=== PATIENT | female | born 1950 | race Caucasian/White ===

== ENCOUNTER 2018-03-26 16:25 | Observation (INO) | payer MEDICARE, OTHER ==
[~2018-03-26] VITALS: Ht 160 cm; Wt 47.0 kg
[~2018-03-26 16:25] MED LIST: ALLO300; ALLO300 PO; ASPI81CH PO; ASPI81EC PO; ATOR20 PO; Alora1 EAC1 TD; CALCIUM 600 MG; CHOL10002 PO; CITALOPRAM PO; CLOP75 PO; DOCU100 PO; ESOM20 PO; ESTEST.62T PO; ESTR2 PO; FENT100TP TOP; FENT75TP; FENT75TP TOP; FISH OIL 1,2001 EACH PO; FISH1000 PO; GINGER PO; HYDACE10B PO; HYDCHL12.5 PO; HYDR10 PO; Hair, Skin & N1 EACH PO; LAVAP17G PO; LISI20; LISI20 PO; METO25ER; METO25ER PO; METO50 PO; METO50ER PO; MSM1500 MG PO; MULVITA PO; NITR.1TP; NITR.3TP TOP; NITR.4SL SL; NITR100; ONDA4ODT MM; OXYACE5T PO; OXYC5 PO; PANT40 PO; PROC10 PO; PROC5; PROC5 PO; Prinivil10 MG PO; RANEXA; RANO500T PO; TOCO400 PO; VITAMIN D PO; Vitamin E PO; [UNRECOGNIZED DRUG - CODE] PO
[2018-03-26 17:43] LABS: BASOPHILS ABSOLUTE AUTO 0.02 K/mm3 (0.00-0.23); BASOPHILS PERCENT AUTO 0 % (0-2); EOSINOPHILS ABSOLUTE AUTO 0.05 K/mm3 (0.00-0.68); EOSINOPHILS PERCENT AUTO 1 % (0-6); Hematocrit 39.2 % (33.0-51.0); Hemoglobin 13.1 g/dL (11.5-16.0); IMMATURE GRAN ABSOLUTE AUTO 0.01 K/mm3 (0.00-0.10); IMMATURE GRAN PERCENT AUTO 0 % (0-1); LYMPHOCYTES PERCENT AUTO 32 % (21-46); MONOCYTES ABSOLUTE AUTO 0.47 K/mm3 (0.16-1.47); MONOCYTES PERCENT AUTO 9 % (4-13); Mean Corpuscular HGB 30.5 pg (26.0-34.0); Mean Corpuscular HGB Conc 33.4 g/dL (31.5-36.5); Mean Corpuscular Volume 91 fL (80-100); Mean Platelet Volume 10.3 fL (9.1-12.4); NEUTROPHILS ABSOLUTE AUTO 3.04 K/mm3 (1.96-9.15); NEUTROPHILS PERCENT AUTO 58 % (41-73); Platelet Count 189 K/mm3 (150-400); RDW Coefficient Variation 13.2 % (11.7-14.2); RDW Standard Deviation 43.8 fL (35.1-46.3); White Blood Cell Count 5.29 K/mm3 (4.00-11.30)
[2018-03-26 18:09] LABS: Alanine Aminotransfer (ALT/SGP 13 U/L (12-78); Albumin, Blood 3.9 g/dL (3.4-5.0); Albumin/Globulin Ratio 1.1 (0.8-1.8); Alk Phos 59 U/L (50-136); Anion Gap 7 mmol/L (6-16); Aspartate Aminotrans (AST/SGOT 17 U/L (12-37); Bilirubin, Total 0.4 mg/dL (0.1-1.0); Blood Urea Nitrogen 6 mg/dL (8-24); Bun/Creatinine Ratio 11.7 (12.0-20.0); CO2, Blood 25 mmol/L (21-32); Calcium, Blood 9.1 mg/dL (8.5-10.1); Chloride, Blood 108 mmol/L (98-108); Creatinine, Blood 0.51 mg/dL (0.40-1.00); Globulin, Blood 3.5 g/dL (2.2-4.0); Glomerular Filtration Rate >60 (60-); Glucose, Blood 89 mg/dL (70-99); Potassium, Blood 4.1 mmol/L (3.5-5.5); Sodium, Blood 140 mmol/L (136-145); Total Protein, Blood 7.4 g/dL (6.4-8.2); Troponin I <0.015 ng/mL (0.000-0.040)
[2018-03-26] MEDS ORDERED: Calcium + Vita1 EACH PO (18:48)
[2018-03-26] MEDS ORDERED: ONDA4ODT PO (18:49)
[2018-03-26] MEDS ORDERED: ASCO500 PO (18:49)
[2018-03-26] MEDS ORDERED: POLY500 PO (18:49)
[2018-03-27 05:02] LABS: Hematocrit 37.9 % (33.0-51.0); Hemoglobin 12.6 g/dL (11.5-16.0); Mean Corpuscular HGB 30.4 pg (26.0-34.0); Mean Corpuscular HGB Conc 33.2 g/dL (31.5-36.5); Mean Corpuscular Volume 92 fL (80-100); Mean Platelet Volume 9.9 fL (9.1-12.4); Platelet Count 186 K/mm3 (150-400); RDW Coefficient Variation 13.2 % (11.7-14.2); RDW Standard Deviation 44.8 fL (35.1-46.3); Red Blood Cell Count 4.14 M/mm3 (3.80-5.20); White Blood Cell Count 4.77 K/mm3 (4.00-11.30)
[2018-03-27 05:36] LABS: Troponin I 0.037 ng/mL (0.000-0.040)
[2018-03-27 05:39] LABS: Anion Gap 6 mmol/L (6-16); Blood Urea Nitrogen 11 mg/dL (8-24); Bun/Creatinine Ratio 19.7 (12.0-20.0); CO2, Blood 30 mmol/L (21-32); Calcium, Blood 8.5 mg/dL (8.5-10.1); Chloride, Blood 108 mmol/L (98-108); Creatinine, Blood 0.56 mg/dL (0.40-1.00); Glomerular Filtration Rate >60 (60-); Glucose, Blood 88 mg/dL (70-99); Potassium, Blood 4.2 mmol/L (3.5-5.5); Sodium, Blood 144 mmol/L (136-145)
[2018-03-28 05:00] LABS: Anion Gap 4 mmol/L (6-16); Blood Urea Nitrogen 15 mg/dL (8-24); Bun/Creatinine Ratio 23.1 (12.0-20.0); CO2, Blood 29 mmol/L (21-32); Calcium, Blood 8.6 mg/dL (8.5-10.1); Chloride, Blood 108 mmol/L (98-108); Creatinine, Blood 0.65 mg/dL (0.40-1.00); Glomerular Filtration Rate >60 (60-); Glucose, Blood 100 mg/dL (70-99); Potassium, Blood 4.4 mmol/L (3.5-5.5); Sodium, Blood 141 mmol/L (136-145)
[2018-03-30 04:35] LABS: BASOPHILS ABSOLUTE AUTO 0.01 K/mm3 (0.00-0.23); BASOPHILS PERCENT AUTO 0 % (0-2); EOSINOPHILS ABSOLUTE AUTO 0.06 K/mm3 (0.00-0.68); EOSINOPHILS PERCENT AUTO 1 % (0-6); Hematocrit 37.4 % (33.0-51.0); Hemoglobin 12.2 g/dL (11.5-16.0); IMMATURE GRAN ABSOLUTE AUTO 0.01 K/mm3 (0.00-0.10); IMMATURE GRAN PERCENT AUTO 0 % (0-1); LYMPHOCYTES ABSOLUTE AUTO 1.63 K/mm3 (0.84-5.20); LYMPHOCYTES PERCENT AUTO 30 % (21-46); MONOCYTES ABSOLUTE AUTO 0.38 K/mm3 (0.16-1.47); MONOCYTES PERCENT AUTO 7 % (4-13); Mean Corpuscular HGB 30.1 pg (26.0-34.0); Mean Corpuscular HGB Conc 32.6 g/dL (31.5-36.5); Mean Corpuscular Volume 92 fL (80-100); NEUTROPHILS ABSOLUTE AUTO 3.33 K/mm3 (1.96-9.15); NEUTROPHILS PERCENT AUTO 61 % (41-73); Platelet Count 171 K/mm3 (150-400); RDW Coefficient Variation 13.2 % (11.7-14.2); RDW Standard Deviation 44.6 fL (35.1-46.3); Red Blood Cell Count 4.05 M/mm3 (3.80-5.20); White Blood Cell Count 5.42 K/mm3 (4.00-11.30)
[2018-03-30 04:52] LABS: Anion Gap 5 mmol/L (6-16); Blood Urea Nitrogen 11 mg/dL (8-24); Bun/Creatinine Ratio 20.8 (12.0-20.0); CO2, Blood 27 mmol/L (21-32); Calcium, Blood 8.3 mg/dL (8.5-10.1); Chloride, Blood 107 mmol/L (98-108); Creatinine, Blood 0.53 mg/dL (0.40-1.00); Glomerular Filtration Rate >60 (60-); Glucose, Blood 96 mg/dL (70-99); Sodium, Blood 139 mmol/L (136-145)
[2018-03-30] MEDS ORDERED: ALLO100 PO (11:45)
[2018-03-30] MEDS ORDERED: VITAMIN E PO (11:54)
[2018-03-30] MEDS ORDERED: GLUCOSAMINE CH1 EAC1 PO (12:00)
== END 2018-03-30 13:18 | disposition home or self-care (01) ==
LOC: ER 16:25 → MEDS 16:26
PROVIDERS: Family Medicine; Internal Medicine
DX: R07.9 Chest pain, unspecified (principal); I50.42 Chronic combined systolic (congestive) and diastolic (congestive) heart failure; I11.0 Hypertensive heart disease with heart failure; I25.10 Atherosclerotic heart disease of native coronary artery without angina pectoris; I47.2 Ventricular tachycardia; I35.1 Nonrheumatic aortic (valve) insufficiency; R00.1 Bradycardia, unspecified; M10.9 Gout, unspecified; E78.5 Hyperlipidemia, unspecified; G89.29 Other chronic pain; Z87.891 Personal history of nicotine dependence; Z79.01 Long term (current) use of anticoagulants; Z88.2 Allergy status to sulfonamides; Z88.8 Allergy status to other drugs, medicaments and biological substances; Z79.02 Long term (current) use of antithrombotics/antiplatelets; Z79.899 Other long term (current) drug therapy; Z95.1 Presence of aortocoronary bypass graft; Z95.5 Presence of coronary angioplasty implant and graft; Z88.1 Allergy status to other antibiotic agents
CPT/HCPCS: 36415; 71046; 78452; 80048; 80053; 83880; 84484; 85025; 85027; 93005; 93010; 93017; 93306; 96372; 96374; 96376; 99285; A9500; G0378; J0280; J1650; J2405; J2785

== ENCOUNTER 2019-05-02 10:58 | Day surgery (SDC) | payer MEDICARE, OTHER ==
[~2019-05-02] VITALS: Ht 152.4 cm; Wt 45.0 kg
[~2019-05-02 10:58] MED LIST changes: +ACET500 PO; +ALLO100 PO; +ASCO500 PO; +ATOR40TA PO; +Calcium + Vita1 EACH PO; +Fish Oil 10001000 MG PO; +Fruity C250 MG PO; +GLUCOSAMINE CH1 EAC1 PO; +LISI5 PO; +LO-DOSE ASPIRIN81 MG PO; +METO25 PO; +MSM1000 M1 PO; +MULTI VITAMIN1 EACH PO; +ONDA4ODT PO; +POLY500 PO; +Protonix40 MG PO; +Super Calcium600 MG PO; +VITAMIN E PO; +Vitamin E400 UNI4 PO; +Zyloprim100 MG PO
--- NOTE | 2019-05-02 12:20 | NUR ---
05/02/19 1220 Twfelipa,Maryam PT TO RESTROOM
== END 2019-05-02 14:11 | disposition home or self-care (01) ==
LOC: ORSCSDS 10:58
PROVIDERS: Podiatrist
PROC: 0L8W0ZZ Division of Left Foot Tendon, Open Approach (ICD-10-PCS; principal; 2019-05-02 12:30)
PROC: 0SNQ0ZZ Release Left Toe Phalangeal Joint, Open Approach (ICD-10-PCS; principal; 2019-05-02 12:30)
DX: M20.42 Other hammer toe(s) (acquired), left foot (principal); I10 Essential (primary) hypertension; I25.10 Atherosclerotic heart disease of native coronary artery without angina pectoris; I25.2 Old myocardial infarction; Z79.899 Other long term (current) drug therapy; Z79.82 Long term (current) use of aspirin
CPT/HCPCS: J2001; J2250; J2704; J3010

== ENCOUNTER 2019-07-08 13:31 | Observation (INO) | payer MEDICARE, OTHER ==
[~2019-07-08] VITALS: Ht 152.4 cm; Wt 44.8 kg
[2019-07-08] MEDS ORDERED: ALLO300 PO (13:57)
[2019-07-08 14:11] LABS: BASOPHILS ABSOLUTE AUTO 0.02 K/mm3 (0.00-0.23); BASOPHILS PERCENT AUTO 0 % (0-2); EOSINOPHILS ABSOLUTE AUTO 0.05 K/mm3 (0.00-0.68); EOSINOPHILS PERCENT AUTO 1 % (0-6); Hemoglobin 14.4 g/dL (11.5-16.0); IMMATURE GRAN ABSOLUTE AUTO 0.01 K/mm3 (0.00-0.10); IMMATURE GRAN PERCENT AUTO 0 % (0-1); LYMPHOCYTES ABSOLUTE AUTO 1.56 K/mm3 (0.84-5.20); LYMPHOCYTES PERCENT AUTO 29 % (21-46); MONOCYTES ABSOLUTE AUTO 0.46 K/mm3 (0.16-1.47); MONOCYTES PERCENT AUTO 9 % (4-13); Mean Corpuscular HGB Conc 33.5 g/dL (31.5-36.5); Mean Corpuscular Volume 93 fL (80-100); NEUTROPHILS ABSOLUTE AUTO 3.26 K/mm3 (1.96-9.15); NEUTROPHILS PERCENT AUTO 61 % (41-73); Platelet Count 214 K/mm3 (150-400); RDW Coefficient Variation 13.5 % (11.7-14.2); RDW Standard Deviation 46.3 fL (35.1-46.3); Red Blood Cell Count 4.64 M/mm3 (3.80-5.20); White Blood Cell Count 5.36 K/mm3 (4.00-11.30)
[2019-07-08 14:37] LABS: Troponin I <0.015 ng/mL (0.000-0.040)
[2019-07-08 14:42] LABS: Alanine Aminotransfer (ALT/SGP 13 U/L (12-78); Albumin, Blood 4.1 g/dL (3.4-5.0); Albumin/Globulin Ratio 1.1 (0.8-1.8); Alk Phos 76 U/L (50-136); Anion Gap 6 mmol/L (6-16); Aspartate Aminotrans (AST/SGOT 17 U/L (12-37); Bilirubin, Total 0.4 mg/dL (0.1-1.0); Blood Urea Nitrogen 7 mg/dL (8-24); Bun/Creatinine Ratio 14.4 (12.0-20.0); CO2, Blood 28 mmol/L (21-32); Calcium, Blood 9.3 mg/dL (8.5-10.1); Chloride, Blood 111 mmol/L (98-108); Creatinine, Blood 0.49 mg/dL (0.40-1.00); Globulin, Blood 3.7 g/dL (2.2-4.0); Glomerular Filtration Rate >60 (60-); Glucose, Blood 91 mg/dL (70-99); Potassium, Blood 4.1 mmol/L (3.5-5.5); Sodium, Blood 145 mmol/L (136-145); Total Protein, Blood 7.8 g/dL (6.4-8.2)
[2019-07-08] MEDS ORDERED: Fentanyl1 EAC2 TD (15:33)
[2019-07-08] MEDS ORDERED: Prochlorperazin10 MG PO (15:34)
[2019-07-08] MEDS ORDERED: Hydrocodone-Ap1 EA20 PO (15:34)
--- NOTE | 2019-07-08 21:51 | NUR ---
2151: PT CALLS RN TO ROOM AND REQUESTS SL NITRO FOR INCREASING CHEST PAIN LEVEL 06/05. PT BP 113/68 AND PT DENIES N/V, SOB OR PAIN RADIATING TO SHOULDER.
--- NOTE | 2019-07-08 21:57 | NUR ---
2157: CHEST PAIN DECREASED TO LEVEL 4/10 AFTER 1 SL NITRO. LAB IN AND DRAWS TROPONIN. SECOND NITRO GIVEN SL FOR CONTINUED CHEST PAIN.
--- NOTE | 2019-07-08 22:11 | NUR ---
2211: PT CHEST PAIN 2/10 AND TOLERABLE AFTER 2 TABS NITRO. PT CONTINUES TO DENY SOB, N/V, OR RADIATING PAIN. UP WITH SBA FOR BRP AND VOIDS CLEAR YELLOW URINE. CONTINUE TO MONITOR VS, TELE AND CHEST PAIN.
[2019-07-09 06:33] LABS: BASOPHILS ABSOLUTE AUTO 0.03 K/mm3 (0.00-0.23); BASOPHILS PERCENT AUTO 1 % (0-2); EOSINOPHILS ABSOLUTE AUTO 0.07 K/mm3 (0.00-0.68); EOSINOPHILS PERCENT AUTO 1 % (0-6); Hematocrit 39.8 % (33.0-51.0); Hemoglobin 13.5 g/dL (11.5-16.0); IMMATURE GRAN ABSOLUTE AUTO 0.04 K/mm3 (0.00-0.10); IMMATURE GRAN PERCENT AUTO 1 % (0-1); LYMPHOCYTES ABSOLUTE AUTO 2.03 K/mm3 (0.84-5.20); LYMPHOCYTES PERCENT AUTO 37 % (21-46); MONOCYTES ABSOLUTE AUTO 0.59 K/mm3 (0.16-1.47); MONOCYTES PERCENT AUTO 11 % (4-13); Mean Corpuscular HGB 30.2 pg (26.0-34.0); Mean Corpuscular HGB Conc 33.9 g/dL (31.5-36.5); Mean Platelet Volume 9.9 fL (9.1-12.4); NEUTROPHILS ABSOLUTE AUTO 2.77 K/mm3 (1.96-9.15); NEUTROPHILS PERCENT AUTO 50 % (41-73); Platelet Count 189 K/mm3 (150-400); RDW Coefficient Variation 13.4 % (11.7-14.2); RDW Standard Deviation 43.8 fL (35.1-46.3); Red Blood Cell Count 4.47 M/mm3 (3.80-5.20); White Blood Cell Count 5.53 K/mm3 (4.00-11.30)
[2019-07-09 06:35] LABS: Mean Corpuscular Volume 89 fL (80-100)
[2019-07-09 06:41] LABS: Alanine Aminotransfer (ALT/SGP 10 U/L (12-78); Albumin, Blood 3.4 g/dL (3.4-5.0); Albumin/Globulin Ratio 1.1 (0.8-1.8); Alk Phos 63 U/L (50-136); Anion Gap 4 mmol/L (6-16); Aspartate Aminotrans (AST/SGOT 12 U/L (12-37); Bilirubin, Total 0.7 mg/dL (0.1-1.0); Blood Urea Nitrogen 10 mg/dL (8-24); Bun/Creatinine Ratio 16.8 (12.0-20.0); CO2, Blood 29 mmol/L (21-32); Chloride, Blood 106 mmol/L (98-108); Creatinine, Blood 0.59 mg/dL (0.40-1.00); Globulin, Blood 3.2 g/dL (2.2-4.0); Glomerular Filtration Rate >60 (60-); Glucose, Blood 90 mg/dL (70-99); Magnesium, Blood 2.2 mg/dL (1.6-2.4); Potassium, Blood 4.3 mmol/L (3.5-5.5); Sodium, Blood 139 mmol/L (136-145); Total Protein, Blood 6.6 g/dL (6.4-8.2)
--- NOTE | 2019-07-09 07:16 | NUR ---
SUMMARY: ADMIT DAY 2 CHEST PAIN. VSS, AFEBRILE AND CHEST PAIN CONTROLLED TO 2/10 LEVEL WITH 2 TABS NITRO EARLY IN SHIFT. REPEAT EKG THIS AM. PT CONTINUES TO DENY SOB, N/V, OR DIZZINESS. TROPONIN ELEVATED AFTER ADMIT TO 0.13 AND TRENDING BACK DOWN AT 0.066 THIS MORNING.
--- NOTE | 2019-07-09 14:00 | NUR ---
ASSUMED CARE OF PATIENT AT THIS TIME.
--- NOTE | 2019-07-09 18:47 | NUR ---
PT HAS BEEN STABLE SINCE THIS RN ASSUMED CARE. PT HAS HAD NO CHEST PAIN. CHRONIC PAIN MANAGED WITH PRN NORCO. TELE IN PLACE. CARDIOLOGY CONSULT COMPLETED. INDEP IN ROOM. BRYNN DIET WELL. VOIDING WELL WITH BRP. PT USES CALL LIGHT APPROPRIATELY.
--- NOTE | 2019-07-10 07:21 | NUR ---
SUMMARY: CHEST PAIN ADMIT DAY 3 ON HOSPITALIST SERVICE. VSS, AFEBRILE, HTN APPEARS RESOLVED, PT ON ROOM AIR. CHRONIC PAIN MANAGED WITH HOME NORCO DOSING AND CHEST PAIN RESOLVED. PT CONTINUES TO C/O MILD TO MODERATE NAUSEA AND MEDICATED WITH IV ZOFRAN X2 AND PO COMPAZINE. ANTICIPATE DC LATER TODAY.
--- NOTE | 2019-07-10 11:01 | NUR ---
DISCHARGE TEACHING DISCHARGE ORDERS REVIEWED WITH PATIEINT AND PATIENT HAS NO QUESTIONS REGARDING INSTRUCTIONS. PRESCRIPTIONS FAXED TO [facility] PER PATIENT REQUEST. PATIENT TO NOTIFY STAFF WHEN HER TRANSPORTATION ARRIVES
--- NOTE | 2019-07-10 11:56 | NUR ---
1150 DISCHARGED HOME WITH
== END 2019-07-10 11:56 | disposition home or self-care (01) ==
LOC: ER 13:31 → SURS 13:32 → ER 16:07 → SURS 16:07
PROVIDERS: Physician Assistant; ADMIT Internal Medicine
DX: R07.9 Chest pain, unspecified (principal); R00.1 Bradycardia, unspecified; I95.9 Hypotension, unspecified; I35.1 Nonrheumatic aortic (valve) insufficiency; I25.10 Atherosclerotic heart disease of native coronary artery without angina pectoris; I11.0 Hypertensive heart disease with heart failure; I50.42 Chronic combined systolic (congestive) and diastolic (congestive) heart failure; I50.1 Left ventricular failure, unspecified; K21.9 Gastro-esophageal reflux disease without esophagitis; J44.9 Chronic obstructive pulmonary disease, unspecified; E78.5 Hyperlipidemia, unspecified; Z95.1 Presence of aortocoronary bypass graft; Z87.891 Personal history of nicotine dependence; Z88.1 Allergy status to other antibiotic agents; Z88.2 Allergy status to sulfonamides; Z88.8 Allergy status to other drugs, medicaments and biological substances; Z79.899 Other long term (current) drug therapy; Z79.82 Long term (current) use of aspirin; Z79.02 Long term (current) use of antithrombotics/antiplatelets
CPT/HCPCS: 36415; 71046; 80053; 83735; 84484; 85025; 93005; 93010; 93306; 96361; 96374; 96376; 99285-25; A9270-GY; C9113; G0378; J1650; J2405; Q0163

== ENCOUNTER 2020-02-07 09:32 | Day surgery (SDC) | payer MEDICARE, OTHER ==
[~2020-02-07] VITALS: Ht 152.4 cm; Wt 47.8 kg
[~2020-02-07 09:32] MED LIST changes: +Fentanyl1 EAC2 TD; +Hydrocodone-Ap1 EA20 PO; +Prochlorperazin10 MG PO
== END 2020-02-07 11:28 | disposition home or self-care (01) ==
LOC: ORSCSDS 09:32
PROVIDERS: Internal Medicine Gastroenterology
PROC: 0DB68ZX Excision of Stomach, Via Natural or Artificial Opening Endoscopic, Diagnostic (ICD-10-PCS; principal; 2020-02-07 10:45)
PROC: 0D758ZZ Dilation of Esophagus, Via Natural or Artificial Opening Endoscopic (ICD-10-PCS; principal; 2020-02-07 10:45)
PROC: 0DB58ZX Excision of Esophagus, Via Natural or Artificial Opening Endoscopic, Diagnostic (ICD-10-PCS; principal; 2020-02-07 10:45)
DX: R13.10 Dysphagia, unspecified (principal); K29.70 Gastritis, unspecified, without bleeding; K22.2 Esophageal obstruction; M79.7 Fibromyalgia; F41.8 Other specified anxiety disorders; Z87.891 Personal history of nicotine dependence; I25.10 Atherosclerotic heart disease of native coronary artery without angina pectoris; Z79.01 Long term (current) use of anticoagulants; Z79.82 Long term (current) use of aspirin; Z79.899 Other long term (current) drug therapy
CPT/HCPCS: 88305; 88342; J2704; J7120

== ENCOUNTER 2020-03-02 05:53 | Day surgery (SDC) | payer MEDICARE, OTHER ==
[~2020-03-02] VITALS: Ht 152.4 cm; Wt 49.0 kg
--- NOTE | 2020-03-02 08:34 | NUR ---
PT TOLERATES RHYS PROCEDURE WELL WITH ANESTHESIA. PT A&O X4, DRINKING JUICE AT THIS TIME WITHOUT DIFF. NADN. VSS. PT VERBALIZES UNDERSTANDING WRITTEN AND VERBAL ORDERS.
--- NOTE | 2020-03-02 08:44 | NUR ---
PT IV DC'D. CATH INTACT. [facility]. PT DC TO HOME BY WC.
== END 2020-03-02 23:09 | disposition home or self-care (01) ==
LOC: MHTC 05:53
DX: I08.0 Rheumatic disorders of both mitral and aortic valves (principal); I10 Essential (primary) hypertension; E78.5 Hyperlipidemia, unspecified; I70.0 Atherosclerosis of aorta; I23.6 Thrombosis of atrium, auricular appendage, and ventricle as current complications following acute myocardial infarction; Z86.79 Personal history of other diseases of the circulatory system; Z95.5 Presence of coronary angioplasty implant and graft; I25.2 Old myocardial infarction; Z79.82 Long term (current) use of aspirin; Z79.899 Other long term (current) drug therapy; Z79.02 Long term (current) use of antithrombotics/antiplatelets; Z87.891 Personal history of nicotine dependence; Z88.2 Allergy status to sulfonamides; Z88.1 Allergy status to other antibiotic agents; Z88.8 Allergy status to other drugs, medicaments and biological substances
CPT/HCPCS: 93312; 93325; J2704; J7030

== ENCOUNTER 2021-01-20 05:33 | Day surgery (SDC) | payer MEDICARE, OTHER ==
[~2021-01-20] VITALS: Ht 152.4 cm; Wt 51.0 kg
[~2021-01-20 05:33] MED LIST changes: +ASPIR 8181 MG PO; +FENTANYL1 EA11 TOP; -Fentanyl1 EAC2 TD; -Fruity C250 MG PO; +HYDROCODONE-AC1 EAC7 PO; -Hydrocodone-Ap1 EA20 PO; +Isosorbide Mono30 MG PO; -LO-DOSE ASPIRIN81 MG PO; +VITAMIN D310 MC5 PO
--- NOTE | 2021-01-20 12:36 | NUR ---
AZUCENA ON THE WAY TO DRIVE PT HOME, PT DRESSED, IV DC'D INTACT, R FEM SITE STABLE, INSTRUCTIONS GIVEN, PT WILL BE DC'D SHORTLY BY WC BY THIS RN
== END 2021-01-20 12:30 | disposition home or self-care (01) ==
LOC: MHTC 05:33
DX: I25.119 Atherosclerotic heart disease of native coronary artery with unspecified angina pectoris (principal); I35.1 Nonrheumatic aortic (valve) insufficiency; I48.19 Other persistent atrial fibrillation; E78.5 Hyperlipidemia, unspecified; I73.89 Other specified peripheral vascular diseases; Z95.5 Presence of coronary angioplasty implant and graft; Z95.1 Presence of aortocoronary bypass graft; Z88.2 Allergy status to sulfonamides; Z88.8 Allergy status to other drugs, medicaments and biological substances; Z79.82 Long term (current) use of aspirin
CPT/HCPCS: 76937; 93459; 93567; 99152; 99153; C1769; C1894; G0278; J1644; J2250; J3010; J7030; J7050; Q9967

== ENCOUNTER 2022-09-23 09:04 | Day surgery (SDC) | payer MEDICARE, OTHER ==
[~2022-09-23] VITALS: Ht 152.4 cm; Wt 53.4 kg
[~2022-09-23 09:04] MED LIST changes: +Amlodipine Bes2.5 MG PO; +MIRALAX17 GM PO; +ONDA4 PO
--- NOTE | 2022-09-23 09:24 | NUR ---
History, Chart, Medications and Allergies reviewed before start of procedure.Pre-Op teaching done. Pt verbalizes understanding. Patient States Post-Procedure ride home has been arranged. Patient confirms NPO status and agrees with scheduled surgery.
[2022-09-23] MEDS ORDERED: SPIR50 PO (09:36)
--- NOTE | 2022-09-23 10:12 | NUR ---
09/23/22 1012 Mateo Bain History, Chart, Medications and Allergies reviewed before start of procedure. See Anesthesia record DR. VINES
--- NOTE | 2022-09-23 11:40 | NUR ---
Discharged via wheelchair to private car for ride home. WITH ALL DISCHARGE EDUCATION
== END 2022-09-23 23:40 | disposition home or self-care (01) ==
LOC: ORSCMMR 09:04 → ORD 10:30 → ORSCMMR 23:40
PROVIDERS: Surgery
PROC: 0DBL8ZX Excision of Transverse Colon, Via Natural or Artificial Opening Endoscopic, Diagnostic (ICD-10-PCS; principal; 2022-09-23 10:30)
DX: Z12.11 Encounter for screening for malignant neoplasm of colon (principal); D12.3 Benign neoplasm of transverse colon; K62.3 Rectal prolapse; K59.09 Other constipation; F32.A Depression, unspecified; E78.5 Hyperlipidemia, unspecified; I10 Essential (primary) hypertension; I25.2 Old myocardial infarction; F41.1 Generalized anxiety disorder; Z79.82 Long term (current) use of aspirin; Z79.899 Other long term (current) drug therapy
CPT/HCPCS: 88305; 93005; 93010; J1100; J2250; J2370; J2405; J2704; J7120

== ENCOUNTER 2023-11-29 10:36 | Emergency (ER) | payer MEDICARE, OTHER ==
[~2023-11-29] VITALS: Ht 152.4 cm; Wt 49.9 kg
[~2023-11-29 10:36] MED LIST changes: +SPIR50 PO
[2023-11-29 12:17] LABS: BASOPHILS ABSOLUTE AUTO 0.02 K/mm3 (0.00-0.23); BASOPHILS PERCENT AUTO 0 % (0-2); EOSINOPHILS ABSOLUTE AUTO 0.05 K/mm3 (0.00-0.68); EOSINOPHILS PERCENT AUTO 1 % (0-6); Hematocrit 38.7 % (33.0-51.0); IMMATURE GRAN ABSOLUTE AUTO 0.01 K/mm3 (0.00-0.10); IMMATURE GRAN PERCENT AUTO 0 % (0-1); LYMPHOCYTES ABSOLUTE AUTO 1.31 K/mm3 (0.84-5.20); LYMPHOCYTES PERCENT AUTO 27 % (21-46); MONOCYTES ABSOLUTE AUTO 0.42 K/mm3 (0.16-1.47); MONOCYTES PERCENT AUTO 9 % (4-13); Mean Corpuscular HGB Conc 33.6 g/dL (31.5-36.5); Mean Corpuscular Volume 89 fL (80-100); Mean Platelet Volume 10.3 fL (9.1-12.4); NEUTROPHILS ABSOLUTE AUTO 3.05 K/mm3 (1.96-9.15); NEUTROPHILS PERCENT AUTO 63 % (41-73); Platelet Count 200 K/mm3 (150-400); RDW Coefficient Variation 13.4 % (11.7-14.2); RDW Standard Deviation 43.8 fL (35.1-46.3); Red Blood Cell Count 4.33 M/mm3 (3.80-5.20); White Blood Cell Count 4.86 K/mm3 (4.00-11.30)
[2023-11-29 12:44] LABS: Albumin, Blood 3.7 g/dL (3.4-5.0); Bilirubin, Total 0.6 mg/dL (0.1-1.0); Bun/Creatinine Ratio 19.1 (12.0-20.0); Calcium, Blood 9.3 mg/dL (8.5-10.1); Creatinine, Blood 0.52 mg/dL (0.40-1.00); Globulin, Blood 3.7 g/dL (2.2-4.0); Potassium, Blood 4.9 mmol/L (3.5-5.5); Total Protein, Blood 7.4 g/dL (6.4-8.2)
[2023-11-29 14:21] LABS: Influenza A, PCR NEGATIVE (NEGATIVE); Influenza B, PCR NEGATIVE (NEGATIVE); Resp Syncytial Virus, PCR NEGATIVE (NEGATIVE); SARS-Cov-2 (COVID-19) PCR, MMC NEGATIVE (NEGATIVE)
[2023-11-29 15:00] LABS: Source, Urine Clean Catch
[2023-11-29 15:13] LABS: Appearance, Urine Hazy (Clear); Bilirubin, Urine Neg (Neg); Blood, Urine Neg (Neg); Color, Urine Yellow (P-Yellow); Glucose Qualitative, Urine Neg (Neg); Ketones, Urine Neg (Neg); Leukocyte Esterase, Urine 1+ (Neg); Nitrite, Urine Neg (Neg); Protein, Urine 1+ (Neg); Urobilinogen, Urine 1+ (Normal)
[2023-11-29 15:29] LABS: Bacteria Few /hpf; Red Blood Cells, Urine 0-2 /hpf (0-2); Squamous Epithelial Cells Few /hpf (Few)
[2023-11-29 15:30] LABS: Transitional Epithelial Cells Rare /hpf (0-Rare)
[2023-11-29 16:03] VITALS: BP 124/76
== END 2023-11-29 16:03 | disposition home or self-care (01) ==
LOC: ER 10:36
PROVIDERS: Physician Assistant
DX: R07.9 Chest pain, unspecified (principal); R06.02 Shortness of breath; I10 Essential (primary) hypertension; I25.10 Atherosclerotic heart disease of native coronary artery without angina pectoris; I25.2 Old myocardial infarction; E78.5 Hyperlipidemia, unspecified; Z11.52 Encounter for screening for COVID-19; Z88.1 Allergy status to other antibiotic agents; Z88.2 Allergy status to sulfonamides; Z88.8 Allergy status to other drugs, medicaments and biological substances; Z79.899 Other long term (current) drug therapy; Z79.82 Long term (current) use of aspirin; Z79.02 Long term (current) use of antithrombotics/antiplatelets; Z87.891 Personal history of nicotine dependence
CPT/HCPCS: 0241U; 71046; 80053; 81001; 83880; 84484; 85025; 93005; 93010; 96374; 99285-25; A9270; J3010